=== PATIENT | male | born 1955 | race Caucasian/White ===

== ENCOUNTER → 2017-10-27 | Outpatient (CLI) | payer OTHER ==
--- NOTE | 2017-10-27 13:27 | CARD ---
MR#: [id number] Date of Study: 10/27/2017 Ordering Physician: TRENTON CHOWDHURY, Referring Physician: TRENTON CHOWDHURY, Suzanne: Marisa Lewis [facility] APPROVED REPORT EXAM: Two-dimensional and M-mode echocardiogram with Doppler and color Doppler. Other Information Quality : Technically Difficult INDICATION Hypertension 2D DIMENSIONS Left Atrium(2D)5.1 (1.6-4.0cm)IVSd1.4 (0.7-1.1cm) Aortic Root(2D)3.1 (2.0-3.7cm)LVDd6.7 (3.9-5.9cm) LVOT Diameter2.4 (1.8-2.4cm)PWd1.0 (0.7-1.1cm) LVDs5.0 (2.5-4.0cm)FS (%) 18.0 % SV110.1 mlLVEF(%)35.0 (>50%) Aortic Valve AoV Peak Rodger.133.4cm/Jennifer Peak GR.7.1mmHg Mitral Valve MV E Mstwgpyr66.5cm/sMV DECEL [id number] MV A Yxxputrl054.5cm/sE/A Ratio0.7 Pulmonary Valve PV Peak Iwagtezi014.5cm/sPV Peak Grad.4mmHg LEFT VENTRICLE The Left Ventricle is moderately dilated. The anteroseptum is mildly thickened. The systolic function is moderately impaired. The Ejection Fraction is 30-35%. Regional wall motion abnormalities noted. RIGHT VENTRICLE The right ventricle is normal size. There is normal right ventricular wall thickness. The right ventr icular systolic function is normal. ATRIA The left atrium is moderately dilated. The right atrium is mildly dilated. The interatrial septum is intact with no evidence for an atrial septal defect or patent foramen ovale as noted on 2-D or Dopple r imaging. AORTIC VALVE The aortic valve is mildly sclerotic. Doppler and Color Flow revealed trace to mild aortic regurgitat ion. There is no significant aortic valvular stenosis. MITRAL VALVE Anterior mitral valve leaflet is mildly calcified. There is no evidence of mitral valve prolapse. The re is no mitral valve stenosis. Doppler and Color-flow revealed mild to moderate mitral regurgitation . TRICUSPID VALVE The tricuspid valve is normal in structure and function. Doppler and Color Flow revealed trace tricus pid valve regurgitation. There is no tricuspid valve stenosis. PULMONIC VALVE The pulmonary valve is normal in structure and function. Doppler and Color Flow revealed no pulmonic valvular regurgitation. GREAT VESSELS The aortic root is normal in size. The ascending aorta is normal in size. The IVC is normal in size a nd collapses >50% with inspiration. PERICARDIAL EFFUSION There is no pleural effusion. There is no evidence of significant pericardial effusion. Critical Notification Critical Value: No <Conclusion> The systolic function is moderately impaired. The Ejection Fraction is 30-35%. Mild to moderate mitral regurgitation. Trace tricuspid valve regurgitation. There is no evidence of significant pericardial effusion. Signed by : Sae Mari, Electronically Approved : 10/27/2017 13:26:37
== END | disposition home or self-care (01) ==
LOC: ECHO 11:01
PROVIDERS: ATTEND Family Medicine
DX: I16.0 Hypertensive urgency (principal); I08.1 Rheumatic disorders of both mitral and tricuspid valves
CPT/HCPCS: 93306